=== PATIENT | female | born 1970 | race African-American/Black ===

== ENCOUNTER 2020-08-03 22:54 | Observation (INO) | payer OTHER, BC ==
[2020-08-04] MEDS ORDERED: KETOROLAC TROMETHAMINE 30 MG/1 ML VIAL IM ONE (00:44)
[2020-08-04] MEDS ORDERED: ACETAMINOPHEN 500 MG TABLET (FP) PO ONE (00:44)
[2020-08-04] MEDS ORDERED: LIDOCAINE 5% TOPICAL PATCH TP ONE (00:44)
[2020-08-04] MEDS ORDERED: LIDOCAINE 5% TOPICAL PATCH ONE (00:57)
[2020-08-04] MEDS ORDERED: KETOROLAC TROMETHAMINE 30 MG/1 ML VIAL ONE (00:57)
[2020-08-04] MEDS ORDERED: ACETAMINOPHEN 325 MG TABLET (FP) ONE (00:57)
[2020-08-04] MEDS ORDERED: oxyCODONE HCL 5 MG TABLET PO ONE (02:26)
[2020-08-04] MEDS ORDERED: oxyCODONE HCL 5 MG TABLET ONE (02:37)
[2020-08-04] MEDS ORDERED: METHOCARBAMOL 750 MG TABLET PO ONE (04:04)
[2020-08-04] MEDS ORDERED: DEXAMETHASONE SOD PHOSPHATE 10 MG/1 ML VIAL IVPUSH ONE (04:13)
[2020-08-04] MEDS ORDERED: morphine CARPU-JECT 4 MG/1 ML DISP.SYRIN IVPUSH ONE (04:13)
[2020-08-04] MEDS ORDERED: morphine SULFATE 4 MG/ML VIAL ONE ×2 (04:28→11:14)
[2020-08-04] MEDS ORDERED: DEXAMETHASONE SOD PHOSPHATE 10 MG/1 ML VIAL ONE (04:28)
[2020-08-04 05:04] LABS: BASO % 0.7 % (0-2.0); HEMOGLOBIN 15.4 GM/dL (10.7-15.3); LYMPH % 34.2 % (8-40); MCH 30.2 pg (25.7-33.7); MCHC 32.2 g/dl (32.0-36.0); MEAN CELL VOLUME 93.8 fl (80-96); MEAN PLT VOLUME 11.2 fl (7.5-11.1); MONO % 8.2 % (3.8-10.2); NEUT % 53.9 % (42.8-82.8); PLATELET COUNT 154 10^3/uL (134-434); RBC 5.12 M/mm3 (3.60-5.2); RDW 15.3 % (11.6-15.6); WHITE BLOOD COUNT 10.4 K/mm3 (4.0-10.0)
[2020-08-04 05:23] LABS: CHLORIDE 104 mmol/L (98-107); SODIUM 129 mmol/L (136-145)
[2020-08-04 05:25] LABS: CALCIUM 9.7 mg/dL (8.5-10.1); CO2 24 mmol/L (21-32); GLUCOSE,RANDOM 93 mg/dL (74-106)
[2020-08-04 05:28] LABS: CREATININE 0.7 mg/dL (0.55-1.3)
[2020-08-04 05:30] LABS: TOT PROT 9.5 g/dl (6.4-8.2)
[2020-08-04 05:31] LABS: ALK PHOS 80 U/L (45-117)
[2020-08-04 05:40] LABS: ANION GAP 2 MMOL/L (8-16)
[2020-08-04 05:44] LABS: BILIRUBIN,TOTAL < 0.1 mg/dL (0.2-1)
[2020-08-04 06:34] LABS: CHLORIDE 105 mmol/L (98-107); SODIUM 132 mmol/L (136-145)
[2020-08-04 06:35] LABS: CALCIUM 9.1 mg/dL (8.5-10.1)
[2020-08-04 06:36] LABS: BLOOD UREA NITROGEN 18.6 mg/dL (7-18); CO2 24 mmol/L (21-32); GLUCOSE,RANDOM 110 mg/dL (74-106)
[2020-08-04 06:39] LABS: CREATININE 0.6 mg/dL (0.55-1.3)
[2020-08-04 06:44] LABS: ANION GAP 2 MMOL/L (8-16)
[2020-08-04] MEDS ORDERED: GABAPENTIN 400 MG CAPSULE PO ONE (07:00)
[2020-08-04 08:04] LABS: BLOOD UREA NITROGEN 18.3 mg/dL (7-18); CALCIUM 9.6 mg/dL (8.5-10.1)
[2020-08-04 08:08] LABS: CREATININE 0.6 mg/dL (0.55-1.3)
[2020-08-04] MEDS ORDERED: amLODIPine BESYLATE 5 MG TABLET (FP) PO ONE (08:45)
[2020-08-04] MEDS ORDERED: amLODIPine BESYLATE 5 MG TABLET (FP) ONE (09:18)
[2020-08-04] MEDS ORDERED: morphine SULFATE 4 MG/ML VIAL IVPUSH ONE (10:23)
[2020-08-04] MEDS: ENOXAPARIN NA (PORCINE) 40 MG/0.4 ML DISP.SYRIN SQ SCH (11:00)
[2020-08-04] MEDS ORDERED: ENOXAPARIN NA (PORCINE) 40 MG/0.4 ML DISP.SYRIN SQ ONE (11:14)
[2020-08-04] MEDS: INSULIN SLIDING SCALE (NOVOLOG) 1 VIAL SQ SCH ×3 (11:39→23:00)
[2020-08-04 12:44] VITALS: BMI 35.5
[2020-08-04] MEDS ORDERED: LIDOCAINE PATCH REMOVAL MC ONE (12:44)
[2020-08-04] MEDS: LIPASE/PROTEASE/AMYLASE 6,000 UNIT CAPSULE PO SCH ×2 (13:18→17:16)
[2020-08-04] MEDS ORDERED: PT OWN MED DRAWER 7, Y5N ONE ×2 (13:22→17:13)
[2020-08-04] MEDS: GABAPENTIN 400 MG CAPSULE PO SCH ×2 (13:25→22:58)
[2020-08-04] MEDS: LACOSAMIDE 50 MG TABLET PO SCH ×2 (13:26→22:58)
[2020-08-04] MEDS ORDERED: INSULIN (NOVOLOG) ASPART 100 UNITS/ML 10ML VIAL ONE (13:32)
[2020-08-04] MEDS: LIDOCAINE 5% TOPICAL PATCH TP SCH (17:00)
[2020-08-04] MEDS: KETOROLAC TROMETHAMINE 15 MG/ML VIAL IVPUSH PRN ×2 (17:14→23:03)
[2020-08-04] MEDS ORDERED: cloNIDine HCL 0.1 MG TABLET PO SCH (22:00)
[2020-08-04] MEDS ORDERED: LIDOCAINE PATCH REMOVAL MC SCH (22:00)
[2020-08-04] MEDS ORDERED: ATORVASTATIN CA 40 MG TABLET (FP) PO SCH (22:00)
[2020-08-05 05:20] VITALS: TEMP 98
[2020-08-05] MEDS: ACETAMINOPHEN 325 MG TABLET (FP) PO PRN ×2 (06:26→17:05)
[2020-08-05] MEDS: INSULIN SLIDING SCALE (NOVOLOG) 1 VIAL SQ SCH ×3 (06:30→17:59)
[2020-08-05] MEDS: GABAPENTIN 400 MG CAPSULE PO SCH ×2 (06:33→13:33)
[2020-08-05] MEDS ORDERED: INSULIN (NOVOLOG) ASPART 100 UNITS/ML 10ML VIAL ONE ×2 (06:49→11:59)
[2020-08-05] MEDS ORDERED: cloNIDine HCL 0.1 MG TABLET PO SCH ×2 (08:00→12:32)
[2020-08-05 09:04] LABS: HEMATOCRIT 44.1 % (32.4-45.2); MCH 29.9 pg (25.7-33.7); MCHC 31.8 g/dl (32.0-36.0); MEAN CELL VOLUME 94.2 fl (80-96); MEAN PLT VOLUME 11.4 fl (7.5-11.1); PLATELET COUNT 146 10^3/uL (134-434); RBC 4.68 M/mm3 (3.60-5.2); WHITE BLOOD COUNT 11.4 K/mm3 (4.0-10.0)
[2020-08-05 09:11] LABS: INR 1.03 (0.83-1.09); PROTHROMBIN TIME (PATIENT) 12.4 SEC (9.7-13.0)
[2020-08-05] MEDS ORDERED: PT OWN MED DRAWER 7, Y5N ONE ×4 (09:20→17:03)
[2020-08-05 09:27] LABS: CALCIUM 9.2 mg/dL (8.5-10.1)
[2020-08-05 09:28] LABS: BLOOD UREA NITROGEN 16.8 mg/dL (7-18)
[2020-08-05] MEDS: LACOSAMIDE 50 MG TABLET PO SCH (09:28)
[2020-08-05] MEDS: LIPASE/PROTEASE/AMYLASE 6,000 UNIT CAPSULE PO SCH ×3 (09:28→17:05)
[2020-08-05] MEDS: ENOXAPARIN NA (PORCINE) 40 MG/0.4 ML DISP.SYRIN SQ SCH (09:28)
[2020-08-05] MEDS: LIDOCAINE 5% TOPICAL PATCH TP SCH (09:29)
[2020-08-05] MEDS ORDERED: ALPRAZolam 1 MG TABLET PO PRN (09:30)
[2020-08-05 09:31] LABS: CREATININE 0.4 mg/dL (0.55-1.3)
[2020-08-05] MEDS ORDERED: LACTULOSE 20 GM/30 ML UDC (FOR ORAL USE ONLY) PO PRN (09:31)
[2020-08-05] MEDS ORDERED: POLYETHYLENE GLYCOL (HEALTHYLAX) 3350 17 GM PACKET PO SCH (10:00)
[2020-08-05] MEDS ORDERED: amLODIPine BESYLATE 10 MG TABLET (FP) PO SCH (10:00)
[2020-08-05 14:37] VITALS: BP 150/76; PULSE 78
[2020-08-05 15:08] LABS: EPI CELLS 12 /uL (0-25.1); HYALINE CASTS 2 /uL (0-3.1); URINE APPEARANCE CLEAR; URINE BACTERIA 1356 /uL (0-1359); URINE BILIRUBIN NEGATIVE (NEGATIVE); URINE COLOR YELLOW; URINE GLUCOSE (UA) 3+ (NEGATIVE); URINE KETONE NEGATIVE (NEGATIVE); URINE LEUK ESTERASE NEGATIVE (NEGATIVE); URINE NITRITE NEGATIVE (NEGATIVE); URINE PROTEIN 1+ (NEGATIVE); URINE RBC 4 /uL (0-23.9); URINE UROBILINOGEN 0.2 mg/dL (0.2-1.0); URINE WBC 21 /uL (0-25.8)
[2020-08-05] MEDS ORDERED: traMADol HCL 50 MG TABLET PO ONE (17:09)
[2020-08-06] MEDS ORDERED: MULTIVITAMINS (DAILY MVI) TABLET (FP) PO SCH (10:00)
[2020-08-06] MEDS ORDERED: CHOLECALCIFEROL (VIT D3) 1,000 UNIT (25 MCG) TABLET PO SCH (10:00)
[2020-08-06] MEDS ORDERED: THIAMINE HCL 100 MG TABLET (FP) PO SCH (10:00)
== END 2020-08-05 21:24 | disposition home or self-care (01) ==
LOC: JER 22:54 → UNDOADMOB 08-04 06:38 → JERBED 08-04 06:38 → INTOOBSV 08-04 06:38 → JERBED 08-04 11:58 → J8W 08-04 11:58 → JERBED 08-05 10:34 → J8W 08-05 10:34
PROVIDERS: ATTEND Internal Medicine
PROC: 3E033NZ Introduction of Analgesics, Hypnotics, Sedatives into Peripheral Vein, Percutaneous Approach (ICD-10-PCS; principal; 2020-08-05)
PROC: 3E0333Z Introduction of Anti-inflammatory into Peripheral Vein, Percutaneous Approach (ICD-10-PCS; 2020-08-05)
PROC: 3E033GC Introduction of Other Therapeutic Substance into Peripheral Vein, Percutaneous Approach (ICD-10-PCS; 2020-08-05)
PROC: 3E013VG Introduction of Insulin into Subcutaneous Tissue, Percutaneous Approach (ICD-10-PCS; 2020-08-05)
PROC: 3E013GC Introduction of Other Therapeutic Substance into Subcutaneous Tissue, Percutaneous Approach (ICD-10-PCS; 2020-08-05)
DX: M54.6 Pain in thoracic spine (principal); I10 Essential (primary) hypertension; E11.9 Type 2 diabetes mellitus without complications; E66.9 Obesity, unspecified; Z68.35 Body mass index [BMI] 35.0-35.9, adult; G40.909 Epilepsy, unspecified, not intractable, without status epilepticus; H54.8 Legal blindness, as defined in USA; G89.29 Other chronic pain
CPT/HCPCS: 36415; 72050-TC-FY; 72128-TC; 72131-TC; 80048; 80053; 81003; 82962; 83036; 85025; 85027; 85610; 93005; 93010; 96372; 96374; 96375; 96376; 97116-GP; 97161-GP; 99285-25; C9803; G0378; J0735; J1100; U0003; U0005

== ENCOUNTER 2023-07-27 22:46 | Emergency (ER) | payer OTHER, BC ==
[2023-07-27 23:17] VITALS: BMI 29.8
[2023-07-28] MEDS ORDERED: ACETAMINOPHEN INJECTION 100 ML IVPB ONE ×2 (00:33→06:39)
[2023-07-28] MEDS ORDERED: diazePAM 5 MG TABLET ONE (00:33)
[2023-07-28] MEDS ORDERED: LIDOCAINE 4% PATCH TP ONE (00:33)
[2023-07-28] MEDS: ACETAMINOPHEN 1000 MG/100 ML BAG IVPB ONE ×2 (01:04→06:51)
[2023-07-28] MEDS: diazePAM 5 MG TABLET PO ONE (01:04)
[2023-07-28] MEDS: LIDOCAINE 5% TOPICAL PATCH TP ONE (01:04)
[2023-07-28 01:06] LABS: BASO % 0.4 % (0-2.0); EOS % 2.1 % (0-4.5); HEMATOCRIT 43.2 % (32.4-45.2); HEMOGLOBIN 14.2 GM/dL (10.7-15.3); LYMPH % 29.2 % (8-40); MCH 30.7 pg (25.7-33.7); MCHC 32.8 g/dl (32.0-36.0); MEAN CELL VOLUME 93.5 fl (80-96); MEAN PLT VOLUME 9.9 fl (7.5-11.1); MONO % 8.7 % (3.8-10.2); NEUT % 59.6 % (42.8-82.8); PLATELET COUNT 163 10^3/uL (134-434); RBC 4.62 M/mm3 (3.60-5.2); RDW 16.4 % (11.6-15.6); WHITE BLOOD COUNT 9.2 K/mm3 (4.0-10.0)
[2023-07-28 01:10] LABS: INR 0.89 (0.83-1.09); PROTHROMBIN TIME (PATIENT) 10.3 SEC (9.7-13.0)
[2023-07-28 01:17] LABS: POTASSIUM 3.4 mmol/L (3.5-5.1)
[2023-07-28 01:20] LABS: ALBUMIN 3.7 g/dl (3.4-5.0); BLOOD UREA NITROGEN 13.1 mg/dL (7-18)
[2023-07-28 01:23] LABS: CREATININE 0.7 mg/dL (0.55-1.3)
[2023-07-28 01:25] LABS: BILIRUBIN,TOTAL 0.7 mg/dL (0.2-1); TOT PROT 7.3 g/dl (6.4-8.2)
[2023-07-28] MEDS ORDERED: POTASSIUM CHLORIDE ORAL LIQUID 20 MEQ/15 ML ONE (02:19)
[2023-07-28] MEDS: POTASSIUM CHLORIDE ORAL LIQUID 20 MEQ/15 ML PO ONE (03:05)
[2023-07-28 06:55] VITALS: BP 158/81; PULSE 75; RESP 13; TEMP 98.2
[2023-07-28] MEDS ORDERED: METHOCARBAMOL 500 MG TABLET ONE (08:44)
[2023-07-28] MEDS ORDERED: KETOROLAC TROMETHAMINE 15 MG/ML VIAL ONE (08:44)
[2023-07-28] MEDS: KETOROLAC TROMETHAMINE 15 MG/ML VIAL IVPUSH ONE (08:57)
[2023-07-28] MEDS: METHOCARBAMOL 750 MG TAB PO ONE (08:57)
[2023-07-28 10:44] LABS: PH,URINE 5.5 (5.0-8.0); URINE APPEARANCE CLEAR; URINE BILIRUBIN NEGATIVE (NEGATIVE); URINE COLOR YELLOW; URINE GLUCOSE (UA) 3+ (NEGATIVE); URINE KETONE 2+ (NEGATIVE); URINE LEUK ESTERASE NEGATIVE (NEGATIVE); URINE NITRITE NEGATIVE (NEGATIVE); URINE PROTEIN NEGATIVE (NEGATIVE); URINE UROBILINOGEN 0.2 mg/dL (0.2-1.0)
== END 2023-07-28 10:40 | disposition home or self-care (01) ==
LOC: JER 22:46
PROC: 3E033NZ Introduction of Analgesics, Hypnotics, Sedatives into Peripheral Vein, Percutaneous Approach (ICD-10-PCS; principal; 2023-07-28)
PROC: 3E0333Z Introduction of Anti-inflammatory into Peripheral Vein, Percutaneous Approach (ICD-10-PCS; 2023-07-28)
PROC: 3E033NZ Introduction of Analgesics, Hypnotics, Sedatives into Peripheral Vein, Percutaneous Approach (ICD-10-PCS; 2023-07-28)
DX: M54.6 Pain in thoracic spine (principal); M54.2 Cervicalgia; R51.9 Headache, unspecified; R10.84 Generalized abdominal pain; R11.2 Nausea with vomiting, unspecified; R19.7 Diarrhea, unspecified; R09.81 Nasal congestion; R63.0 Anorexia; Z20.822 Contact with and (suspected) exposure to COVID-19
CPT/HCPCS: 0241U-QW; 36415; 70450-TC; 72125-TC; 72128-TC; 72131-TC; 74177-TC; 80053; 81003; 83690; 84703; 85025; 85610; 85730; 87086; 87186; 96374; 96375; 96376; 99285-25; J0131